=== PATIENT | female | born 2000 | race Two or more races ===

== ENCOUNTER 2021-08-07 09:32 | Emergency (ER) | payer MEDICAID, OTHER ==
[~2021-08-07] VITALS: Ht 160 cm; Wt 84.8 kg
[2021-08-07 09:41] VITALS: BP 139/93
--- NOTE | 2021-08-07 09:42 | NUR ---
BIB SELF C/O LACERATION AT R FOOT
--- NOTE | 2021-08-07 09:43 | NUR ---
AT BED SIDE
[2021-08-07] MEDS ORDERED: TDAP [DIPH/PERTUSSIS/TET] 0.5 ML VIAL IM ONE ×2 (09:57→10:00)
[2021-08-07] MEDS: TDAP [DIPH/PERTUSSIS/TET] 0.5 ML VIAL IM ONE (10:02)
--- NOTE | 2021-08-07 10:19 | NUR ---
Patient discharged to home in stable condition. Written and verbal after care instructions given. Patient verbalizes understanding of instruction.
== END 2021-08-07 10:20 | disposition home or self-care (01) ==
LOC: ER 09:43
DX: S91.311A Laceration without foreign body, right foot, initial encounter (principal); W22.8XXA Striking against or struck by other objects, initial encounter; Y93.89 Activity, other specified; Y92.832 Beach as the place of occurrence of the external cause; Y99.8 Other external cause status
CPT/HCPCS: 90715